=== PATIENT | female | born 1975 | race Caucasian/White ===

== ENCOUNTER 2019-05-11 12:07 | Emergency (ER) | payer SELFPAY ==
[2019-05-11 12:55] VITALS: BMI 41.5
[2019-05-11 13:16] LABS: Basophils # 0.1 10^3/uL (0.0-0.1); Basophils % 0.7 %; Eosinophils # 0.2 10^3/uL (0.0-0.8); Eosinophils % 1.7 %; Hemoglobin 14.6 g/dL (11.5-15.3); Lymphocytes # 2.6 10^3/uL (0.8-4.8); Mean Corpuscular HGB Conc 32.4 g/dL (30.0-36.0); Mean Corpuscular Hemoglobin 29.9 pg (28.0-34.0); Mean Platelet Volume 9.6 fL (7.4-10.4); Monocytes # 0.4 10^3/uL (0.2-0.9); Monocytes % 4.4 %; Neutrophils # 6.4 10^3/uL (1.8-7.7); Neutrophils % 65.8 %; Nucleated Red Blood Cells % 0 %; Platelet Count 337 10^3/cmm (130-400); Red Blood Count 4.89 10^6/uL (4.1-5.3); Red Cell Distribution Width 12.9 % (12.1-15.1); White Blood Count 9.7 10^3/uL (4.0-10.0)
[2019-05-11 13:43] LABS: Alanine Aminotransferase 11 U/L (0-33); Albumin Level 4.8 g/dL (3.5-5.2); Alkaline Phosphatase 84 IU/L (35-105); Anion Gap 15.4 (5-19); Aspartate Amino Transferase 10 U/L (0-32); Blood Urea Nitrogen 10 mg/dL (6-20); Calcium 9.9 mg/dL (8.5-10.5); Carbon Dioxide 25 mmol/L (22-29); Chloride 103 mmol/L (98-107); Creatinine Clr Calc Pharmacy 112.2171; Globulin 2.9 g/dL (1.3-4.6); Glomerular Filtration Rate 91.3 mL/min (90-130); Glucose 103 mg/dL (74-109); Potassium 4.4 mmol/L (3.5-5.1); Sodium 139 mmol/L (136-145); Total Bilirubin 0.2 mg/dL (0.15-1.2); Total Protein 7.7 g/dL (6.6-8.7)
[2019-05-11 13:52] LABS: Acetaminophen < 5.0 ug/mL (10-30); Alcohol Level < 10 mg/dL (0-10); Salicylate < 0.3 mg/dL (3-10)
--- NOTE | 2019-05-11 14:21 | ED_ITS ---
Entered by Breanna Kitchen, acting as scribe for Kendell Castro MD May 11, 2019 12:07 HPI - Psych General: Chief Complaint: Psychiatric Symptoms Stated Complaint: Depression Time Seen by Provider: 05/11/19 14:18 History of Present Illness: HPI Narrative: 44 yo female presents to ED with complaints of anger and depression issues. She said she has been going through a lot lately. She said she is taking care of others and is feeling overwhelmed, like everything is caving in on her & she cannot dig out of the rut she is in. She said she has been out of her meds for 2 years (she was taking Trazadone for anxiety & night terrors; Zoloft for depression). She said she has no suicidal nor homicidal ideations. She said she has been trying to get into [facility] but is not able to get an appointment. complaint: feels depressed Onset (ago): day(s) (2 years but intensified today) Duration: constant History of same: Yes Relieving factors: medication and therapy Exacerbating factors: other (no medication or therapy) Context: significant life stressor (taking care of others) Associated psychiatric symptoms: depression Associated symptoms: Reports depression Treatments prior to arrival: none Review of Systems Const: Denies: fever, chills, body aches or change in appetite Eyes: Denies: blurry vision or eye discomfort ENMT: Denies: throat pain or dental pain Card: Denies: chest pain Resp: Denies: shortness of breath GI: Denies: abdominal pain, nausea, vomiting or diarrhea : Denies: painful urination Musc: Denies: neck pain or back pain Skin/Breast: Denies: rash Neuro: Denies: headache Psych: Reports: depression and hopelessness Armond/Lymph: Denies: easy bruising All/Imm: Denies: hives PFSH ED PFSH: Statuses (acute, chronic, etc) shown below reflect problem list status as previously entered and may not be historically accurate Social History Smoking and tobacco status: current every day smoker Female Reproductive History: Date of last menstrual period: 05/04/19 Physical Exam Const: COMMON NORMALS: no apparent distress, oriented x3 and healthy appearing HENMT: COMMON NORMALS: normocephalic and head/scalp atraumatic HEAD & SCALP: normocephalic and atraumatic Eye: COMMON NORMALS: PERRL and EOMs intact bilaterally PUPIL: Yes PERRL Neck/C-Spine: COMMON NORMALS: full ROM and supple Chest: COMMONS NORMALS: inspection of chest normal and palpation of chest normal Resp: COMMON NORMALS: normal respiratory effort, no retractions, no use of accessory muscles and clear to auscultation bilaterally AUSCULTATION: clear to auscultation bilaterally Cardio: COMMON NORMALS: regular rate, regular rhythm and no murmurs RATE: regular rate RHYTHM: regular rhythm GI: COMMON NORMALS: normal to inspection, nondistended, normoactive bowel sounds, soft to palpation, non-tender and no masses PALPATION: Yes soft Extremity: COMMON NORMALS: normal to inspection and full ROM Neuro: COMMON NORMALS: oriented x3, moves all extremities and no focal motor deficits Psych: COMMON NORMALS: mental status grossly normal, thought process normal and cooperative THOUGHT PROCESS: normal thought process Skin: COMMON NORMALS: no rashes or lesions noted and no wounds GENERAL SKIN EXAM: no rashes or lesions noted MDM - Psych MDM Narrative: Medical decision making narrative: Patient presents with depression and she has been out of her medications. Patient is not suicidal or homicidal. I did offer admission to [facility] but she states she would like to try her meds first and will get [facility] follow-up. Patient is to return to ER if worsening. She understands and agrees to the plan. Lab Data: Labs: Lab Results 05/11/19 05/11/19 Range/Units 13:10 13:10 WBC 9.7 (4.0-10.0) 10^3/ uL RBC 4.89 (4.1-5.3) 10^6/u L Hgb 14.6 (11.5-15.3) g/dL Hct 45.0 (37.0-47.0) % MCV 92.0 (81-99) fL MCH 29.9 (28.0-34.0) pg MCHC 32.4 (30.0-36.0) g/dL RDW 12.9 (12.1-15.1) % Plt Count 337 (130-400) 10^3/c mm MPV 9.6 (7.4-10.4) fL Neut % (Auto) 65.8 % Lymph % (Auto) 27.0 % [place] % (Auto) 4.4 % Eos % (Auto) 1.7 % Baso % (Auto) 0.7 % Neut # (Auto) 6.4 (1.8-7.7) 10^3/u L Lymph # (Auto) 2.6 (0.8-4.8) 10^3/u L [place] # (Auto) 0.4 (0.2-0.9) 10^3/u L Eos # (Auto) 0.2 (0.0-0.8) 10^3/u L Baso # (Auto) 0.1 (0.0-0.1) 10^3/u L Nucleated RBC % (a uto) 0 % Nucleated RBCs # 0.0 /100WBC Sodium 139 (136-145) mmol/L Potassium 4.4 (3.5-5.1) mmol/L Chloride 103 (98-107) mmol/L Carbon Dioxide 25 (22-29) mmol/L Anion Gap 15.4 (5-19) BUN 10 (6-20) mg/dL Creatinine 0.7 (0.5-0.9) mg/dL GFR Calculation 91.3 (90-130) mL/min Glucose 103 (74-109) mg/dL Calcium 9.9 (8.5-10.5) mg/dL Total Bilirubin 0.2 (0.15-1.2) mg/dL AST 10 (0-32) U/L ALT 11 (0-33) U/L Alkaline Phosphata se 84 (35-105) IU/L Total Protein 7.7 (6.6-8.7) g/dL Albumin 4.8 (3.5-5.2) g/dL Globulin 2.9 (1.3-4.6) g/dL Salicylates < 0.3 L (3-10) mg/dL Acetaminophen < 5.0 L (10-30) ug/mL Ethyl Alcohol < 10 (0-10) mg/dL Discharge Plan Discharge Patient Disposition: Home, Self-Care Clinical Impression: Depression Qualifiers: Depression Type: unspecified Qualified Code(s): F32.9 - Major depressive disorder, single episode, unspecified Condition: Stable Prescriptions: New Zoloft 50 mg tablet 50 mg PO DAILY Qty: 30 RF: 0 trazodone 100 mg tablet 100 mg PO DAILY Qty: 30 RF: 0 [facility]errals: [facility], [Staff Physician] - 4-7 days Discharge Diet: Advance as tolerated and Soft Mechanical Patient Instructions: Depression (ED) Stand Alone Forms: Work/School Release Discharge Date/Time: 05/11/19 15:01 Coding Level of Care Code ED Sheet Rock Taper for Chg Fwd Exam Problem Focused The documentation recorded by the Fidelina adams Valerie R, accurately reflects the service I personally performed and the decisions made by Matthew meier Korby, MD May 11, 2019 12:07
--- NOTE | 2019-05-11 14:24 | PC.NURSE ---
Patient denies SI/HI at this time.
[2019-05-11 15:01] VITALS: BP 150/89; PULSE 74; RESP 15; O2SAT 96
--- NOTE | 2019-05-11 16:25 | DCPLANNER ---
clinic office manager was asked to check on patient an appointment at [facility]. clinic office manager called [facility], spoke with Aide at [facility], was told that patient has not done her initial walk in assessment. clinic office manager informed ED physician that patient has not done her initial assessment at this time. clinic office manager called patient and informed her of the times that she could do a walk in assessment at the [facility] for her initial assessment.
== END 2019-05-11 15:01 | disposition home or self-care (01) ==
PROVIDERS: Emergency Provider Emergency Medicine
DX: F32.9 Major depressive disorder, single episode, unspecified (principal); F17.210 Nicotine dependence, cigarettes, uncomplicated
CPT/HCPCS: 36415; 80053; 80307; 85025; 99281

== ENCOUNTER → 2023-01-07 14:16 | Outpatient (BNVA) | payer MEDICAID, SELFPAY | PROVIDERS: PCP Family Medicine; Visit Provider Nurse Practitioner Family | DX: J02.9 Acute pharyngitis, unspecified (principal); J30.2 Other seasonal allergic rhinitis; R69 Illness, unspecified; Z20.822 Contact with and (suspected) exposure to COVID-19 | CPT/HCPCS: 87071; 87880 ==